=== PATIENT | female | born 1960 | race Caucasian/White ===

== ENCOUNTER 2021-12-26 13:00 | Outpatient (CLI) | payer BC, SELFPAY | END 2021-12-26 13:01 | disposition home or self-care (01) | LOC: INJ CL 13:04 | PROVIDERS: PCP Family Medicine; Visit Provider Family Medicine | DX: M51.36 Other intervertebral disc degeneration, lumbar region (principal); M54.16 Radiculopathy, lumbar region | CPT/HCPCS: 64483; 64484; Q9966 ==

== ENCOUNTER 2022-12-18 09:56 | Outpatient (CLI) | payer BC, SELFPAY | END 2022-12-18 09:57 | disposition home or self-care (01) | LOC: INJ CL 09:57 | PROVIDERS: PCP Family Medicine; Visit Provider Family Medicine | DX: M54.16 Radiculopathy, lumbar region (principal) | CPT/HCPCS: 64483; 64484; J1100; Q9966 ==

== ENCOUNTER 2023-05-28 10:32 | Outpatient (CLI) | payer BC, SELFPAY | END 2023-05-28 10:33 | disposition home or self-care (01) | PROVIDERS: PCP Family Medicine; Visit Provider Family Medicine | DX: M51.36 Other intervertebral disc degeneration, lumbar region (principal); M54.16 Radiculopathy, lumbar region | CPT/HCPCS: 64483; J1100; Q9966 ==

== ENCOUNTER 2024-08-07 09:04 | Outpatient (CLI) | payer BC, SELFPAY ==
--- NOTE | 2024-08-07 09:15 | CRLHL7_ITS ---
For Patients: As a result of the Century Cures Act, medical imaging exams and procedure reports are released immediately into your electronic medical record. You may view this report before your referring provider. If you have questions, please contact your health care provider. Indication: Memory loss. Technique: Multiplanar multisequence noncontrast MR images of the brain. Comparison: None. Findings: Mild diffuse cerebral volume loss. No mass effect or midline shift. Few punctate FLAIR hyperintensities in the supratentorial white matter, typical for minimal chronic microvascular ischemic changes. Small encephalomalacia and gliosis anterior right frontal lobe (series 4, image 31). 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 No intracranial hemorrhage or pathologic extra-axial fluid collection. No diffusion restriction to suggest acute infarction. The major arterial flow voids of the skull base are preserved. Globes are symmetric. Minimal ethmoid sinus mucosal thickening. Mastoid air cells are clear. Impression: 1. No acute intracranial abnormality. 2. 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 Small encephalomalacia and gliosis in the anterior right frontal lobe may represent sequelae of chronic infarction or remote trauma. 3. Mild diffuse cerebral volume loss and minimal chronic microvascular ischemic changes Dictated by Sylvester Larson MD @ 08/07/2024 10:15:09 AM (Electronically Signed)
== END 2024-08-07 09:05 | disposition home or self-care (01) ==
LOC: MRI 09:06
PROVIDERS: PCP Family Medicine; Visit Provider Psychiatry & Neurology Neurology
DX: R41.3 Other amnesia (principal); I63.9 Cerebral infarction, unspecified; I67.82 Cerebral ischemia
CPT/HCPCS: 70551